=== PATIENT | male | born 1970 | race Caucasian/White ===

== ENCOUNTER 2018-09-14 14:14 | Emergency (ER) | payer SELFPAY ==
[2018-09-14 14:24] VITALS: BP 135/80; PULSE 90; RESP 18; TEMP 98.4; O2SAT 98
--- NOTE | 2018-09-14 14:41 | ED PDOC ---
Arrival/HPI - General Chief Complaint: Abnormal Skin Integrity Time Seen by Provider: 09/14/18 14:17 Historian: Patient - History of Present Illness Narrative History of Present Illness (Text): 09/14/18 14:42 47 year old male, with past medical history of lip and dental abscess, presents to the ED for pain management today. Patient states he recently had 3 lip abscesses removed by an oral surgeon in [place] on Friday and is scheduled to follow- up with the surgeon today at 9 pm. Patient was prescribed Clindamycin. However, patient reports pain to the area since yesterday prompting him to present to the ED for pain management. Patient states taking maximum dosage of Tylenol at home and expresses drug allergies to multiple traditional pain medications. Reports that he was not given narcotic pain medication by [place] due to their drug policy. Patient denies any other associated somatic complaints othern than tooth pain. Patient denies any fevers, chills, headache, dizziness, chest pain, shortness of breath, dyspnea on exertion, cough, abdominal pain, nausea, vomiting, diarrhea, back pain, neck pain, or any other complaints. Time/Duration: < week Symptom Onset: Gradual Symptom Course: Unchanged Activities at Onset: Light Context: Home Past Medical History - Provider Review Nursing Documentation Reviewed: Yes - Hematological/Oncological Hx Blood Disorders: Yes (DVT) Hx Sickle Cell Trait: Yes Other/Comment: DVT - Psychiatric Hx Substance Use: No - Anesthesia Hx Anesthesia: Yes Hx Anesthesia Reactions: No Hx Malignant Hyperthermia: No Family/Social History - Physician Review Nursing Documentation Reviewed: Yes Family/Social History: Unknown Family HX Smoking Status: Never Smoked Hx Alcohol Use: No Hx Substance Use: No Allergies/Home Meds Allergies/Adverse Reactions: Allergies ibuprofen [From Motrin] Allergy (Verified 09/14/18 14:19) URTICARIA ketorolac [From Toradol] Allergy (Verified 09/14/18 14:19) ANAPHYLAXIS latex Allergy (Verified 09/14/18 14:19) URTICARIA Penicillins Allergy (Verified 09/14/18 14:19) ANAPHYLAXIS povidone-iodine [From Betadine] Allergy (Verified 09/14/18 14:19) URTICARIA soap [From Betadine] Allergy (Verified 09/14/18 14:19) URTICARIA tramadol Allergy (Verified 09/14/18 14:19) URTICARIA Review of Systems - Review of Systems Constitutional: absent: Fevers Eyes: absent: Vision Changes ENT: absent: Hearing Changes Respiratory: absent: SOB, Cough Cardiovascular: absent: Chest Pain, Palpitations, Edema Gastrointestinal: absent: Abdominal Pain, Constipation, Diarrhea, Nausea, Vomiting Genitourinary Male: absent: Dysuria, Urinary Output Changes Musculoskeletal: absent: Back Pain, Neck Pain Skin: absent: Rash Neurological: absent: Headache, Dizziness Endocrine: absent: Diaphoresis Psychiatric: absent: Anxiety Physical Exam Vital Signs Reviewed: Yes Vital Signs Temp Pulse Resp BP Pulse Ox 09/14/18 14:14 98.4 F 90 18 135/80 98 Temperature: Afebrile Blood Pressure: Normal Pulse: Regular Respiratory Rate: Normal Appearance: Positive for: Well-Appearing, Non-Toxic, Comfortable, Other (well appearing, phonating normally, speaking in complete sentences.) Pain Distress: None Mental Status: Positive for: Alert and Oriented X 3 - Systems Exam Head: Present: Atraumatic, Normocephalic, Other Pupils: Present: PERRL Extroacular Muscles: Present: EOMI Conjunctiva: Present: Normal Mouth: Present: Moist Mucous Membranes, Other (Dental carries noted to left upper and lower teeth. No abscess appreciated. Healing surgical incision noted to outer left upper lip, well healing, no erythema. ) Pharnyx: No: ERYTHEMA, EXUDATE, TONSILS ENLARGED, Uvular Deviation, Muffled/Hoarse Voice, Strider, Soft Palate/Uvular Edema Neck: Present: Normal Range of Motion Respiratory/Chest: Present: Clear to Auscultation, Good Air Exchange. No: Respiratory Distress, Accessory Muscle Use Cardiovascular: Present: Regular Rate and Rhythm, Normal S1, S2. No: Murmurs Upper Extremity: Present: Normal Inspection. No: Cyanosis, Edema Lower Extremity: Present: Normal Inspection. No: Edema Neurological: Present: GCS=15, Speech Normal Skin: Present: Warm, Dry, Normal Color. No: Rashes Psychiatric: Present: Alert, Oriented x 3, Normal Insight, Normal Concentration Medical Decision Making ED Course and Treatment: 09/14/18 14:50 Patient presents to the ED for pain management s/p dental abscesses removed by oral surgeon on Friday. Patient was started on Clindamycin. Patient states he has a follow-up appointment with the surgeon at [place] today at 9pm and is requesting narcotic pain medication until then. Patient reports taking maximum dosage of Tylenol (1500 mg) at home and states his "liver is shot up from taking Tylenol". Do not think there is any indication for narcotics for tooth pain and am concerned there may be some element of abuse. Patient has follow-up in 6 hours. - Scribe Statement The provider has reviewed the documentation as recorded by the Scribe Mary Mathews. All medical record entries made by the Scribe were at my direction and personally dictated by me. I have reviewed the chart and agree that the record accurately reflects my personal performance of the history, physical exam, medical decision making, and the department course for this patient. I have also personally directed, reviewed, and agree with the discharge instructions and disposition. Disposition/Present on Arrival - Present on Arrival Any Indicators Present on Arrival: No History of DVT/PE: No History of Uncontrolled Diabetes: No Urinary Catheter: No History of Decub. Ulcer: No History Surgical Site Infection Following: None - Disposition Have Diagnosis and Disposition been Completed?: Yes Diagnosis: Dental caries, Post-operative pain, Dental caries extending into dentin, Dental caries into pulp Disposition: HOME/ ROUTINE Disposition Time: 14:39 Patient Plan: Discharge Condition: GOOD Discharge Instructions (ExitCare): Tooth Decay, Adult, Managing Pain After Surgery Additional Instructions: Follow-up with [place] oral surgeon as scheduled at 9pm today. Do not take more than 3000mg tylenol per day. Referrals: PCP,NO [Primary Care Provider] - Follow up with primary Forms: [facility] (Nepali)
== END 2018-09-14 14:59 | disposition home or self-care (01) ==
LOC: ED 14:14
DX: K02.9 Dental caries, unspecified (principal); G89.18 Other acute postprocedural pain